=== PATIENT | female | born 1975 | race Caucasian/White ===

== ENCOUNTER → 2021-03-03 10:58 | Outpatient (REF) | payer OTHER, SELFPAY ==
--- NOTE | 2021-03-03 11:03 | CA_ITS ---
Acquisition Time: 2021-03-03 11:18:47 Total Exercise Time: 00:06:15 Test Indications: Chest Pain Medications: FLONASE Protocol: MIR Max HR: 169 BPM 96% of Pred: 175 BPM Max BP: 160/064 mmHG Max Work Load: 7.3 METS Exercise stress test with exercise 6 min 15 sec of Mir protocol, with moderate shortness of breath, no chest discomfort, with isolated PVCs, with normotensive response to exercise, without EKG changes meeting criteria for ischemia. Echo images obtained by tech at rest and immediately post peak exercise. Definity contast used. Test reviewed with Dr Strickland. Referred By: Danika Almanzar Overread By: NANCY RUBIN
== END ==
LOC: HO.CARD 10:58
PROVIDERS: PCP Internal Medicine; Visit Provider Internal Medicine
DX: R07.9 Chest pain, unspecified (principal)
CPT/HCPCS: 93350; Q9957

== ENCOUNTER 2023-06-14 10:53 | Outpatient (REF) | payer OTHER, SELFPAY ==
[2023-06-14 12:53] LABS: Alanine Aminotransferase 16 U/L (0-31); Albumin Level 4.4 g/dL (3.5-5.0); Alkaline Phosphatase 92 U/L (39-117); Anion Gap 13 (12-20); Aspartate Amino Transferase 18 U/L (5-31); Bilirubin Total 0.7 mg/dL (0.0-1.0); Blood Urea Nitrogen 19 mg/dL (9-16); Calcium 9.3 mg/dL (8.4-10.2); Carbon Dioxide 26 mmol/L (22-29); Chloride 106 mmol/L (96-108); Estimated Glomerular Filt Rate > 60; Glucose Random 88 mg/dL (60-115); Potassium 4.1 mmol/L (3.3-5.1); Sodium 141 mmol/L (135-145); Total Protein 7.1 g/dL (6.5-8.0)
== END 2023-06-14 10:54 | disposition home or self-care (01) ==
LOC: HO.LAB 10:53
PROVIDERS: PCP Internal Medicine; Visit Provider Internal Medicine
DX: R25.3 Fasciculation (principal)
CPT/HCPCS: 36415; 80053

== ENCOUNTER 2023-07-18 14:42 | Outpatient (REF) | payer OTHER, SELFPAY ==
--- NOTE | ~2023-07-18 | MR_ITS ---
EXAMINATION: MR BRAIN WITHOUT AND WITH CONTRAST CLINICAL INFORMATION: Persistent headaches. History of Chiari malformation decompression. COMPARISON: There are no prior studies available for comparison at time of dictation. TECHNIQUE: Multiplanar, multisequence MRI of the brain was obtained before and after the intravenous administration of 6.5 mL Gadavist. FINDINGS: No diffusion abnormalities are identified to suggest an acute or subacute infarct. No mass effect or midline shift is seen. The ventricles and sulci are normal in size. Brain parenchymal signal is unremarkable. No extra-axial fluid collections are seen. The brainstem appears normal. On postcontrast imaging, there is no abnormal parenchymal or leptomeningeal enhancement. No pathologic magnetic susceptibility artifact is identified on the gradient refocused acquisition. There are sequelae of prior Chiari I malformation decompression. On the current study, the right cerebellar tonsil extends 1.2 cm below the level of foramen magnum with a slightly pointed configuration. The left cerebellar tonsil has normal contour. Signal from the upper cervical spine appears normal, and there is no syrinx. Marrow signal and midline structures are normal. The major intracranial flow-voids at the level of the [place] of Schmidt are preserved. The dural venous sinus flow-voids are maintained. The mastoid air cells are well-aerated. There is minimal compressive thickening in the anterior ethmoid air cells bilaterally. MR/MR head/brain wo/w con IMPRESSION: 1. There are no acute bleeds or infarcts. There are no masses or areas of abnormal enhancement. 2. There are sequelae of prior Chiari I decompression. The right cerebellar tonsil extends 1.2 mm below the level of foramen magnum with a slightly pointed configuration. Recommend correlation with prior studies if available, assess for any interval change.
[2023-07-18] MEDS: gadobutroL 7.5 ML VIAL IVPUSH (15:58)
== END 2023-07-18 14:43 | disposition home or self-care (01) ==
LOC: HO.MRI 14:42
PROVIDERS: PCP Internal Medicine; Visit Provider Internal Medicine
DX: G43.909 Migraine, unspecified, not intractable, without status migrainosus (principal); G93.5 Compression of brain
CPT/HCPCS: 70553; A9585

== ENCOUNTER 2023-10-04 14:37 | Outpatient (REF) | payer OTHER, SELFPAY ==
[2023-10-04 14:57] LABS: MANUAL DIFF FLAG NO
[2023-10-04 15:21] LABS: Basophils Percent Auto 0.4 % (0-2); Eosinophils Absolute Auto 0.3 X10*3/uL (0.0-0.4); Eosinophils Percent Auto 2.9 % (0-4); Hematocrit 38.3 % (37.0-47.0); Hemoglobin 12.8 g/dl (12.0-16.0); Imm Gran Abs Auto 0.03 X10*3/uL (0.00-0.03); Imm Gran Pct Auto 0.3 % (0.0-0.4); Lymphocytes Absolute Auto 1.6 X10*3/uL (1.2-4.9); Lymphocytes Percent Auto 17.2 % (20-40); Mean Corpuscular HGB Conc 33.4 g/dl (31.0-35.0); Mean Corpuscular Hemoglobin 29.1 pg (27.0-33.0); Mean Platelet Volume 10.7 fL (9.4-12.3); Monocytes Absolute Auto 0.8 X10*3/uL (0.1-1.2); Monocytes Percent Auto 8.4 % (2-11); Neutrophils Absolute Auto 6.5 x10*3/uL (2.0-8.3); Neutrophils Percent Auto 70.8 % (45-73); Platelet Count 252 X10*3/uL (160-400); Red Cell Distribution Width 13.5 % (11.0-16.0); White Blood Count 9.2 X10*3/uL (4.8-10.8)
[2023-10-04 15:26] LABS: Estimated Average Glucose 97 mg/dL
[2023-10-04 15:55] LABS: Cholesterol 227 mg/dL (<200); HDL Cholesterol 51 mg/dL (>40); LDL Cholesterol Calculated 143 mg/dL (<100); Magnesium 2.1 mg/dL (1.6-2.6); Triglycerides 166 mg/dL (<150)
== END 2023-10-04 14:38 | disposition home or self-care (01) ==
LOC: HO.LAB 14:37
PROVIDERS: PCP Internal Medicine; Visit Provider Internal Medicine
DX: Z00.00 Encounter for general adult medical examination without abnormal findings (principal); Z13.220 Encounter for screening for lipoid disorders; Z13.1 Encounter for screening for diabetes mellitus
CPT/HCPCS: 36415; 80061; 83036; 83735; 85025

== ENCOUNTER 2024-01-12 06:22 | Day surgery (SDC) | payer OTHER, SELFPAY ==
[2024-01-10 12:37] VITALS: BMI 28.2
--- OUTSIDE RECORDS SUMMARY | 2024-01-12 06:24 | XMS_ITS | Continuity of Care Document ---
Author Organization [facility] Address [address] [place] [address] Alida leonardo, [address] [place] [address]- Care Team Providers Care Manufacturing Teacher Name Role Phone Danika Almanzar MD Primary Care Physician [place] [facility] [place]s): 10/17/23 - 10/24/23 [facility] [address] [place] [address] Drive [address] [place] [address]- Attending Physician: Jay Freed MD Referring Physician: Danika Almanzar MD Allergies, Adverse Reactions, Alerts Substance Reaction Severity Status erythromycin Abdominal pain Active morphine Active Bactrim Rash Active Dilaudid Active Immunizations Given and Recorded Vaccine Date Status Refusal Reason tetanus/diphtheria/pertussis, acel(Tdap) 01/30/20 Given Tet/Diphth/Acel, Pertussis (oldterm) 09/03/09 Give n influenza virus vaccine, inactivated 1 01/29/07 Gi lalo tetanus-diphtheria toxoids (Td) 03/20/06 Given 1Admin Note: sanofi pasteur no contraindications Medications Compression Stockings See Instructions, # 2 pair, Refills 3, Tot. Refills 3, Maintenance, surgical, calf length 30-40 mm Hg dx edema, 07/25/13 11:13:40, Compound Start Date: 07/25/13 Status: Ordered cyclobenzaprine 5 mg oral tablet 1 tablet, By Mouth, 3 times a day, PRN NEEDED FOR MUSCLE SPASM INSTR, SEDATING. DON'T DRIVE AFTER TAKING, # 42 each, 1 Refills, Maintenance, 10/17/23 13:19:00 EDT, [facility], 158, cm, 10/17/23 11:00:00 EDT, Height Start Date: 10/17/23 Stop Date: 10/31/23 Status: Ordered Flonase Daily, 0 Refills, Maintenance, 01/30/20 11:11:00 EST, Partial fill upon patient request Start Date: 01/30/20 Status: Ordered nortriptyline 10 mg oral capsule 20 mg, 2, capsule, By Mouth, Daily at bedtime, # 180 capsule, Refills 3, Tot. Refills 3, Maintenance, 10/04/23 13:19:00 EDT, Route to Pharmacy Electronically, [facility], Partial fill upon patient request if the prescription is for a schedule II opi... Start Date: 10/04/23 Status: Ordered Turmeric = 500 mg, By Mouth, Daily, 0 Refills, Maintenance, 01/30/20 11:11:00 EST, Partial fill upon patientrequest Start Date: 01/30/20 Status: Ordered ZyrTEC 10 mg oral tablet 1 tablet = 10 mg, By Mouth, Daily, 0 Refills, Maintenance, 01/30/20 11:11:00 EST, Partial fill uponpatient request Start Date: 01/30/20 Status: Ordered Problem List Condition Confirmation Course Effective Dates Status H ealth Status Informant Allergic rhinitis Confirmed Active Chiari malformation type I 1 Confirmed Active Chronic back pain 2 Confirmed Active FH: Thyroid disease Confirmed Active Radius fracture 3 Confirmed 2018 Active Hyperlipidemia 4 Confirmed 02/10/20 Active Migraine 5 Confirmed Active Lumbar herniated disc Confirmed Active 1Had surgery for 02/17 2Reports herniated disc since 17. chronic pain michael at end of day but gets 1-3 flares per year where back locks up and has severe pain 3LEft distal after a fall. sen at [facility] 4Risk score 4.3% 5Topamax changed her personality . Vital Signs Most recent to oldest [Reference Range]: 1 Height 158 cm (10/17/23 11:00 AM) Weight 66.7 kg (10/17/23 11:00 AM) Body Mass Index [18.5-24.99 kg/m2] 26.72 kg/m2 *H* (10/17/23 11:00 AM) Social History Social History Type Response Smoking Status Never smoker; Tobacc o user in household: No entered on: 06/07/16 Sex Patient Care team information Care Team Personnel Name: Danika Almanzar MD Position: [facility] Physician - Primary Care Member Role: PCP Address: Address: [facility] [place] [address]- [place] Care Team Related Persons Name: BOBBY APONTE Address: home [address] [place] [address] Name: BALWINDER APONTE Address: home [address] [place] [address]
--- OUTSIDE RECORDS SUMMARY | 2024-01-12 06:24 | XMS_ITS | Continuity of Care Document ---
Author Organization [facility] Address [address] [place] [address] Alida leonardo, [address] [place] [address]- Care Team Providers Care Financial Reporting Advisor Name Role Phone Danika Almanzar MD Primary Care Physician [place] [facility] [place] 10/26/23 [facility] [address] [place] [address] Drive [address] [place] [address]- Attending Physician: Jay Freed MD Referring Physician: [...] each, 1 Refills, Maintenance, 10/17/23 13:19:00 EDT, [facility], 158, cm, 10/17/23 11:00:00 EDT, Height Start Date: 10/17/23 Stop Date: 10/31/23 Status: Ordered Flonase Daily, 0 Refills, Maintenance, 01/30/20 11:11:00 EST, Partial fill upon patient request Start Date: 01/30/20 Status: Ordered nortriptyline 10 mg oral capsule 20 mg, 2, capsule, By Mouth, Daily at bedtime, # 180 capsule, Refills 3, Tot. Refills 3, Maintenance, 10/04/23 13:19:00 EDT, Route to Pharmacy Electronically, [facility], Partial fill upon patient request if [...] score 4.3% 5Topamax changed her personality . Social History Social History Type Response Smoking Status Never smoker; Tobacc o user in household: No entered on: 06/07/16 Sex Patient Care team information Care Team Personnel Name: Danika Almanzar MD Position: S Physician - Primary Care Member Role: PCP Address: Address: [address] [facility] [place] [address]- Care Team Related Persons Name: BOBBY APONTE Address: home [address] [place] [address] Name: BALWINDER APONTE Address: [address] [place] [address]
--- OUTSIDE RECORDS SUMMARY | 2024-01-12 06:24 | XMS_ITS | Continuity of Care Document ---
Author Organization [facility] Address Unknown Care Team Providers Care Screw Machine Repairer Name Role Phone Yohan GUNTER, Danika Montano Primary Care Physician [place] [facility] [place] 04/03/21 [facility] Allergies, Adverse Reactions, Alerts Substance Reaction Severity Status erythromycin Abdominal pain Active morphine Active Dilaudid Active Bactrim Rash Active Immunizations Given and Recorded Vaccine Date [...] 11:13:40, Compound Start Date: 07/25/13 Status: Ordered Problem List Condition Effective Dates Status Health Status Inform ant Allergic rhinitis(Confirmed) Active Chiari malformation type I(C onfirmed) 1 Active FH: Thyroid disease(Confirmed) Active Radius fracture(Confirmed) 2 2017 Active Hyperlipidemia(Confirmed) 3 02/10/20 Active 1Had surgery for 02/17 2LEft distal after a fall. sen at [facility] 3Risk score 4.3% Social History Social History Type Response Smoking Status Never smoker; Tobacc o user in household: No entered on: 06/07/16 Sex
--- OUTSIDE RECORDS SUMMARY | 2024-01-12 06:24 | XMS_ITS | Continuity of Care Document ---
Author Organization [facility] Address [address] [place] [address]- Care Team Providers Care Fixed Capital Clerk Name Role Phone Yohan GUNTER, Danika Montano Primary Care Physician Encounter [facility] Date(s): 08/10/23 - 08/17/[address] [address] Attending Physician: Aldair Peacock MD Allergies, Adverse Reactions, Alerts Substance Reaction [...] 11:13:40, Compound Start Date: 07/25/13 Status: Ordered Flonase Daily, 0 Refills, Maintenance, 01/30/20 11:11:00 EST, Partial fill upon patient request Start Date: 01/30/20 Status: Ordered nortriptyline 10 mg oral capsule 10 mg, 1, capsule, By Mouth, Daily at bedtime, # 30 capsule, Refills 4, Tot. Refills 4, Maintenance, 06/14/23 9:44:00 EDT, Route to Pharmacy Electronically, [facility], Partial fill upon patient request if the prescription is for a schedule II opioi... Start Date: 06/14/23 Status: Ordered Turmeric = 500 mg, By [...] Chiari malformation type I 1 Confirmed Active FH: Thyroid disease Confirmed Active Radius fracture 2 Confirmed 2018 Active Hyperlipidemia 3 Confirmed 02/10/20 Active Migraine 4 Confirmed Active 1Had surgery for 02/17 2LEft distal after a fall. sen at [facility] 3Risk score 4.3% 4Topamax changed her personality . Social History Social History Type Response Smoking Status Never smoker; Tobacc o user in household: No entered on: 06/07/16 Sex Cardiology * Event Display: Cardiac Device Reports Authored Date: Patient Care team information Care Team Personnel Name: Yohan GUNTER, Danika Montano Position: [facility] Physician - Primary Care Member Role: PCP Address: Address: [address] [facility] [place] [address]- Care Team Related Persons Name: BOBBY APONTE Address: home [address] [place] [address] Name: BALWINDER APONTE Address: home [address] [place] [address]
--- OUTSIDE RECORDS SUMMARY | 2024-01-12 06:24 | XMS_ITS | Continuity of Care Document ---
Author Organization [facility] Address [address] [place] [address]- Care Team Providers Care E Business Consultant Name Role Phone Yohan GUNTER, Danika Montano Primary Care Physician Encounter [facility] Date(s): 08/03/20 - 09/02/20 [facility] [address] [place] [address]- Allergies, Adverse Reactions, Alerts Substance Reaction Severity [...]
--- OUTSIDE RECORDS SUMMARY | 2024-01-12 06:24 | XMS_ITS | Continuity of Care Document ---
Author Organization [facility] ter Address [address] [place] [address]- Care Team Providers Care Music Director Name Role Phone Danika Almanzar MD Primary Care Physician [place] [facility] [place] - 05/09/[address] [address] Attending Physician: Danika Almanzar MD Admitting Physician: Danika Almanzar MD Referring Physician: Danika Almanzar MD Allergies, [...]
--- OUTSIDE RECORDS SUMMARY | 2024-01-12 06:24 | XMS_ITS | Continuity of Care Document ---
Author Organization [facility] Address [address] [place] [address] malissa, [address] [place] [address]- Care Team Providers Care Gas Derrick Operator Name Role Phone Yohan GUNTER, Danika Montano Primary Care Physician Encounter [facility] Date(s): 08/24/23 - 09/23/23 [facility] [address] [place] [address] Drive [address] [place] [address]- Allergies, Adverse Reactions, Alerts Substance Reaction Severity [...] 06/14/23 9:44:00 EDT, Route to Pharmacy Electronically, [facility], Partial fill upon patient request if [...] Personnel Name: Yohan GUNTER, Danika Montano Position: [facility] Physician - Primary Care Member Role: PCP Address: Address: [address] [place] [address] [place] [address]- [place] Care Team Related Persons Name: BOBBY APONTE Address: home [address] [place] [address] Name: BALWINDER APONTE Address: [address] [place] [address]
--- OUTSIDE RECORDS SUMMARY | 2024-01-12 06:24 | XMS_ITS | Continuity of Care Document ---
Author Organization [facility] Address [address] [place] [address] Alida leonardo, [address] [place] [address]- Care Team Providers Care Crystallography Teacher Name Role Phone Yohan GUNTER, Danika Montano Primary Care Physician Encounter [facility] Date(s): 10/17/23 - 11/16/23 [facility] [address] [place] [address] Drive [address] [place], [place] [address] Attending Physician: Donna Chamorro Admitting Physician: Donna Chamorro Referring Physician: AdmtrDonna Allergies, Adverse Reactions, Alerts Substance Reaction Severity [...] each, 1 Refills, Maintenance, 10/17/23 13:19:00 EDT, [facility], 158, cm, 10/17/23 11:00:00 EDT, Height Start Date: 10/17/23 Stop Date: 10/31/23 Status: Ordered Flonase Daily, 0 Refills, Maintenance, 01/30/20 11:11:00 EST, Partial fill upon patient request Start Date: 01/30/20 Status: Ordered nortriptyline 10 mg oral capsule 20 mg, 2, capsule, By Mouth, Daily at bedtime, # 180 capsule, Refills 3, Tot. Refills 3, Maintenance, 10/04/23 13:19:00 EDT, [facility] [...] in household: No entered on: 06/07/16 Sex Radiology * Event Display: MRI Head, Non- Authored Date: Patient Care team information Care Team Personnel Name: Danika Almanzar MD Position: [facility] Physician - Primary Care Member Role: PCP Address: Address: [address] [place] [address] [place] [address]- Care Team Related Persons Name: BOBBY APONTE Address: home [address] [place] [address] Name: BALWINDER APONTE Address: home [address] [place] [address]
--- OUTSIDE RECORDS SUMMARY | 2024-01-12 06:24 | XMS_ITS | Continuity of Care Document ---
Author Organization [facility] Address [address] [facility] [place] [address]- Care Team Providers Care Fabric Coating Supervisor Name Role Phone Yohan GUNTER, Danika Montano Primary Care Physician Encounter 04/24/20 - 05/01/20 [facility] [address] [facility], [address] [place] [address]- Attending Physician: Danika Almanzar MD Admitting Physician: [...]
--- OUTSIDE RECORDS SUMMARY | 2024-01-12 06:24 | XMS_ITS | Continuity of Care Document ---
Author Organization [facility] Address [address] [place] [address]- Care Team Providers Care Target Worker Name Role Phone Yohan GUNTER, Danika Montano Primary Care Physician Encounter [facility] Date(s): 08/10/23 - 09/09/[address] [email or web address] Attending Physician: Donna Chamorro Admitting Physician: AdmtrDonna Referring Physician: Admtr, Ar8 Allergies, Adverse Reactions, Alerts Substance Reaction Severity [...] 9:44:00 EDT, Route to Pharmacy Electronically, [facility], Partial fill upon patient [...] Personnel Name: Yohan GUNTER, Danika Montano Position: [facility] Physician - Primary Care Member Role: PCP Address: Address: [address] [facility] [place] [address]- [place] Care Team Related Persons Name: BOBBY APONTE Address: home [address] [place] [address] Name: BALWINDER APONTE Address: [address] [place] [address]
[2024-01-12 06:27] VITALS: BMI 27.3
[2024-01-12 06:42] LABS: UPreg QC Valid YES
[2024-01-12 06:43] LABS: Urine Pregnancy NEGATIVE (NEGATIVE)
[2024-01-12 06:45] VITALS: BP 126/79; PULSE 88; RESP 18; TEMP 36.6; O2SAT 99
[2024-01-12] MEDS: Lactated Ringers 1,000 ML 100 ML IVCONT (07:03)
--- NOTE | 2024-01-12 07:30 | HO.ANESPROP2 ---
HPI - Anesthesia Eval Consult details Narrative: 49 yo F presenting for EGD and colon PMFSH Past Medical History Medical History (Updated 01/10/24 @ 12:31 by Milka Che RN) Migraine Hyperlipidemia Hiatal hernia Chiari malformation type I Family History Family history of problems with anesthesia: No Surgical History Surgical History (Updated 01/10/24 @ 12:33 by Milka Che RN) History of open reduction and internal fixation (ORIF) procedure Hx of laminectomy Hx of section History of Problems with Anesthesia: No Social History Social History (Updated 01/10/24 @ 12:33 by Milka Che RN) Patient Tobacco Use Status: Tobacco use Unknown Advance Directives: No Advance Directives Information Provided: Yes Meds Allergies Allergy/AdvReac Type Severity Reaction Status Date / Time erythromycin base Allergy Unknown Unknown Verified 01/10/24 12:34 hydromorphone [From Dilaudid] Allergy Unknown Unknown Verified 01/10/24 12:34 morphine Allergy Unknown Unknown Verified 01/10/24 12:34 Sulfa (Sulfonamide Allergy Unknown Unknown Verified 01/10/24 12:34 Antibiotics) Active Medications: Current Medications Lactated Ringer's (Lr) 1,000 mls @ 100 mls/hr IVCONT .Q10H TORY Last Admin: 01/12/24 07:03 Dose: 100 mls/hr Home Medications ?Medication ?Instructions ?Recorded ?Confirmed ?Last Taken ?Type cetirizine 10 mg tablet (Zyrtec) 10 mg PO DAILY 01/10/24 01/10/24 Unknown History cyclobenzaprine 5 mg tablet 5 mg PO TID PRN Muscle Spasm 01/10/24 01/10/24 Unknown History fluticasone propionate 50 1 spray intranasal DAILY 01/10/24 01/10/24 Unknown History mcg/actuation nasal spray,suspension nortriptyline 10 mg capsule 10 mg PO BEDTIME 01/10/24 01/10/24 Unknown History Exam Exam Date and Time: 01/12/24 07 Height,Weight and Vital Signs: Height 5 ft 1.5 in Weight 66.508 kg Last Vital Signs Temp 98 F 01/12/24 06:45 Pulse 88 01/12/24 06:45 Resp 18 01/12/24 06:45 BP 126/79 01/12/24 06:45 Pulse Ox 99 01/12/24 06:45 O2 Del Method Room Air 01/12/24 06:45 Pertinent Lab Results Pertinent Lab Results: Laboratory Tests 01/12/24 06:35 Urine Test NEGATIVE Airway Mallampati Class: I TM Dist: >3cm Neck ROM: Full Loose/Missing/Broken Teeth: No (patient denies any loose or broken teeth) Heart: S1S2 Lungs: CTAB Assessment and Plan Assessment Anesthesia Assessment: Anesthesia Plan Discussed and Chart Reviewed Final Anesthetic Review Family History of Problems with Anesthesia: No History of Problems with Anesthesia: No NPO: Yes ASA Class: II Final Preanesthetic Review: No Changes in Pt Med Stat, Meds/Allgs Chart Reviewed, Consent Obtained/Reviewed and Anes Risks/Benef Reviewed Patient Risk: Low Procedure Risk: Low Anesthetic Plan Anesthetic Plan: MAC: and Agree w/ Assess. and Plan Disposition: Standard PACU
--- NOTE | 2024-01-12 07:32 | P.HPSUR_ITS ---
Pre-Procedural Eval Section A - 24 Hr Update-Section A only Date of Service: 01/12/24 Section B - Complete if H&P > 30 days Chief Complaint: screeninhg,dysphagia Details of Present Illness: see H&P no changes Relevant Family History (Specify if Yes): No Relevant Social History: None Present Medications: see Short Stay Collaborative assessment Medical History: No relevant PMH History of Previous Operations: No relevant previous surgery Allergies: Allergies Allergy/AdvReac Type Severity Reaction Status Date / Time erythromycin base Allergy Unknown Unknown Verified 01/10/24 12:34 hydromorphone [From Dilaudid] Allergy Unknown Unknown Verified 01/10/24 12:34 morphine Allergy Unknown Unknown Verified 01/10/24 12:34 Sulfa (Sulfonamide Allergy Unknown Unknown Verified 01/10/24 12:34 Antibiotics) Review of Systems Sugical H&P ROS: Negative: Constitution, Cardiovascular, Respiratory, Neurological, Psychiatric, Hem-Onc, Allergic/Immunologic, Gastrointestinal, Genitourinary, Musculoskeletal, Integumentary, Endocrine and E yes/Ears/Nose/Throat Exam Surgical H&P Exam: Normal: HEENT, Normal: Heart, Normal: Lungs, Normal: Extremities, Normal: Abdomen, Normal: Skin and Normal: Neurological Plan Diagnosis/Plan: Unchanged I have reviewed the history and physical and performed a pertinent physical examination on my patient. No changes have occurred unless specified. Time Spent With Patient Time: Total time managing care of this patient today ____ minutes.
[2024-01-12 08:15] VITALS: BP 96/46; PULSE 101; RESP 20; TEMP 36.2; O2SAT 96
[2024-01-12 08:30] VITALS: BP 106/63; PULSE 95; RESP 20; O2SAT 100
[2024-01-12 08:45] VITALS: BP 118/77; PULSE 88; RESP 18; TEMP 36.8; O2SAT 100
--- NOTE | 2024-01-12 08:45 | OP_ITS ---
DATE OF SERVICE: 01/12/2024 SURGEON: Spenser Preston MD INDICATIONS: 1. Dysphagia. 2. Colon cancer screening. PREOPERATIVE DIAGNOSIS: POSTOPERATIVE DIAGNOSIS: PROCEDURE PERFORMED: Upper endoscopy with biopsy and balloon dilation, colonoscopy to the terminal ileum. ESTIMATED BLOOD LOSS: COMPLICATIONS: ANESTHESIA: Monitored anesthesia care. ASSISTANTS: SPECIMENS: DESCRIPTION OF PROCEDURE: A history and physical performed. The risks and benefits of the procedure were explained to the patient. Informed consent was obtained. The patient was placed in the left lateral decubitus position. The Olympus video gastroscope was introduced into the esophagus, stomach, and duodenum. Examination was performed. The scope was removed. She was repositioned for colonoscopy. A digital rectal exam was performed and was found to be normal. The Olympus pediatric video colonoscope was introduced in the rectum and advanced to the cecum. The cecum was identified by transillumination, palpation, and identification of ileocecal valve. Examination was performed. The scope was removed. She tolerated the procedure well, returned to recovery room in stable condition. FINDINGS: Upper endoscopy: Esophagus: The esophagus showed a nonobstructive Schatzki ring with some very mild distal esophagitis and a single 2 mm erosion. The scope easily passed through this. Stomach. The stomach showed no evidence of masses, ulcers, or polyps. Duodenum. The bulb and 2nd portion were normal. Balloon dilation of the Schatzki ring to 18 mm was performed with the balloon passed through the scope and inflated to its recommended pressure for 60 seconds. The ring was widely patent after the dilation. Biopsies were obtained from the EG junction. Biopsies were also obtained from the antrum. Colonoscopy: The terminal ileum was examined and appeared normal. The visualized colonic mucosa was normal. The quality of prep was excellent. No polyps were identified. Retroflexed examination showed some small internal hemorrhoids. There was mild sigmoid diverticulosis. IMPRESSION: 1. Schatzki ring, dilated. 2. Normal colonoscopy. RECOMMENDATIONS: 1. Follow up with the biopsy results. 2. Repeat dilation could be considered in the future if symptoms persist. 3. Normal colonoscopy, repeat colonoscopy is recommended in 10 years for average-risk individuals. MD GLENDY Bacon/DOMINGUEZ / [id number] [facility]
--- NOTE | 2024-01-12 09:44 | P.BOP_ITS ---
Brief Operative Note Date of Service: 01/12/24 Pre-op diagnosis: dysphagia screening Post-op diagnosis: same Procedure: EGD colon Surgeon: Spenser Preston MD Anesthesia: MAC Was an Bond Underwriter used for this Procedure?: No Estimated blood loss (mL): 5 Pathology: other Condition: stable
== END 2024-01-12 09:04 | disposition home or self-care (01) ==
PROVIDERS: Anesthesiology; PCP Family Medicine; Visit Provider Internal Medicine Gastroenterology
PROC: (CPT 45378; principal; 2024-01-12 07:30)
DX: Z12.11 Encounter for screening for malignant neoplasm of colon (principal); K57.30 Diverticulosis of large intestine without perforation or abscess without bleeding; K64.8 Other hemorrhoids; R13.10 Dysphagia, unspecified; R07.89 Other chest pain; K22.2 Esophageal obstruction; K20.80 Other esophagitis without bleeding; K44.9 Diaphragmatic hernia without obstruction or gangrene; E78.5 Hyperlipidemia, unspecified; G93.5 Compression of brain; G43.909 Migraine, unspecified, not intractable, without status migrainosus; J30.9 Allergic rhinitis, unspecified; Z79.51 Long term (current) use of inhaled steroids; Z79.899 Other long term (current) drug therapy; Z88.1 Allergy status to other antibiotic agents; Z88.2 Allergy status to sulfonamides; Z88.5 Allergy status to narcotic agent; Z98.890 Other specified postprocedural states
CPT/HCPCS: 45378; 43249; 43239; 81025; 88305; 88313; 88342; C1726; J0131; J2003; J2704